=== PATIENT | female | born 1955 | race Caucasian/White ===

== ENCOUNTER 2017-07-05 10:37 | Emergency (ER) | payer OTHER ==
[~2017-07-05] VITALS: Ht 157.5 cm; Wt 68.5 kg
[2017-07-05] MEDS ORDERED: MICARDIS HCT 81 EAC1 (11:00)
[2017-07-05] MEDS ORDERED: ATIVAN2 M1 (11:00)
[2017-07-05] MEDS ORDERED: CYMBALTA60 MG (11:02)
[2017-07-05] MEDS ORDERED: GLIMEPIRIDE4 MG (11:03)
== END 2017-07-05 14:45 | disposition home or self-care (01) ==
LOC: ER 10:37
DX: R42 Dizziness and giddiness (principal); J32.0 Chronic maxillary sinusitis